=== PATIENT | male | born 1975 | race African-American/Black ===

== ENCOUNTER 2021-09-05 08:04 | Inpatient (IN) ==
[2021-09-05] MEDS ORDERED: LACTATED RINGERS 1,000 ML IV SCH (09:30)
[2021-09-05] MEDS ORDERED: LIDOCAINE 2% 5 ML VIAL ONE (10:30)
[2021-09-05] MEDS ORDERED: SUCCINYLCHOLINE 200 MG/10 ML VIAL ONE (10:30)
[2021-09-05] MEDS ORDERED: SEVOFLURANE 1 UNIT/15 MINUTE INH ONE ×13 (10:30→15:59)
[2021-09-05] MEDS ORDERED: fentaNYL 100 MCG/2 ML VIAL ONE (10:30)
[2021-09-05] MEDS ORDERED: MIDAZOLAM 2 MG/2 ML VIAL ONE (10:30)
[2021-09-05] MEDS ORDERED: propofoL 200 MG/20 ML VIAL IV ONE (10:30)
[2021-09-05] MEDS ORDERED: ROCURONIUM 50 MG/5 ML VIAL IV ONE ×2 (10:30→16:01)
[2021-09-05] MEDS ORDERED: FAMOTIDINE 20 MG TABLET ONE (10:44)
[2021-09-05] MEDS ORDERED: FAMOTIDINE 20 MG TABLET PO ONE (10:47)
[2021-09-05 11:26] LABS: Basophils % 0.2 % (0.0-0.8); Eosinophils # 0.1 10*3/uL (0.0-0.87); Eosinophils % 1.1 % (0.00-10.9); Hematocrit 41.5 VOL% (42.0-52.0); Hemoglobin 13.6 GM/DL (14.0-18.0); Immature Granulocytes % 0.5 %; Immature Granulocytes Absolute 0.06 #; Lymphocytes # 3.2 10*3/uL (1.4-4.0); Mean Corpuscular HGB Conc 32.8 GM/DL (32-36); Mean Corpuscular Volume 87.2 FL (87-102); Monocytes % 9.3 % (1.7-12.7); Neutrophils % 62.9 % (38.7-73.9); Platelet Count 331 T/CUMM (130-400); Red Blood Count 4.76 MC/CUMM (3.8-5.5); Red Cell Distribution Width 12.2 % (9.3-17.3); White Blood Count 12.3 T/CUMM (4-12)
[2021-09-05] MEDS ORDERED: ROPIVACAINE 0.5% 30 ML VIAL ONE (11:27)
[2021-09-05 11:56] LABS: Calcium 9.5 MG/DL (8.5-10.1); Osmolality,Calculated 276.2 MOS/KG (273-304); Potassium 4.3 MMOL/L (3.5-5.1)
[2021-09-05] MEDS ORDERED: PHENYLEPHRINE 1 MG/10 ML SYRINGE IV ONE (12:43)
[2021-09-05] MEDS ORDERED: cefTRIAXone 1,000 MG VIAL ONE (13:18)
[2021-09-05] MEDS ORDERED: GENTAMICIN 80 MG/2 ML VIAL ONE (13:18)
[2021-09-05] MEDS ORDERED: SODIUM CHLORIDE 0.9% 2,000 ML IV ONE (16:00)
[2021-09-05] MEDS ORDERED: SODIUM CHLORIDE 0.9% 250 ML IV ONE (16:00)
[2021-09-05] MEDS ORDERED: GLYCOPYRROLATE 0.4 MG/2 ML VIAL ONE (16:02)
[2021-09-05] MEDS ORDERED: NEOSTIGMINE 10 MG/10 ML VIAL ONE (16:02)
[2021-09-05] MEDS ORDERED: ONDANSETRON 4 MG/2 ML VIAL IV PRN ×2 (16:23→17:02)
[2021-09-05] MEDS ORDERED: diphenhydrAMINE 50 MG/1 ML VIAL IV PRN (16:23)
[2021-09-05] MEDS ORDERED: SIMETHICONE CHEW 125 MG TABLET PO PRN (16:23)
[2021-09-05] MEDS ORDERED: CALCIUM CARBONATE CHEW 500 MG TABLET PO PRN (16:23)
[2021-09-05] MEDS ORDERED: PROMETHAZINE 25 MG/1 ML VIAL IM PRN (16:23)
[2021-09-05] MEDS ORDERED: GLUCAGON 1 MG VIAL IM PRN (16:29)
[2021-09-05] MEDS ORDERED: DEXTROSE 10% 25 GM/250 ML BAG IV PRN (16:29)
[2021-09-05] MEDS ORDERED: HYDROmorphone 1 MG/1 ML SYRINGE ONE (17:04)
[2021-09-05] MEDS: HYDROmorphone 1 MG/1 ML SYRINGE IV PRN ×2 (17:04→17:15)
[2021-09-05 17:18] LABS: Basophils % 0.3 % (0.0-0.8); Eosinophils # 0.1 10*3/uL (0.0-0.87); Eosinophils % 0.5 % (0.00-10.9); Hematocrit 39.3 VOL% (42.0-52.0); Hemoglobin 12.7 GM/DL (14.0-18.0); Immature Granulocytes % 0.9 %; Lymphocytes # 2.6 10*3/uL (1.4-4.0); Lymphocytes % 22.7 % (21.2-54.2); Mean Corpuscular HGB Conc 32.3 GM/DL (32-36); Mean Corpuscular Volume 89.1 FL (87-102); Mean Platelet Volume 10.1 FL (9.6-12.0); Monocytes % 13.9 % (1.7-12.7); Neutrophils % 61.7 % (38.7-73.9); Platelet Count 337 T/CUMM (130-400); Red Blood Count 4.41 MC/CUMM (3.8-5.5); Red Cell Distribution Width 12.4 % (9.3-17.3); White Blood Count 11.6 T/CUMM (4-12)
[2021-09-05 17:18] LABS: Glucose,Urine (UA) 500 mg/dL (Negative); Ketones,Urine Negative (Negative); Nitrite,Urine Negative (Negative); Protein,Urine 100 MG/DL; Urine Appearance Slightly Cloudy (Clear); Urine Color Yellow (Yellow)
[2021-09-05 17:19] LABS: Bilirubin,Urine Negative (Negative); Blood, Urine Large mg/dL (Negative); Urine Urobilinogen 0.2 EU/DL (<2.0)
[2021-09-05 17:28] LABS: Hyaline Casts,Urine 4 /LPF (0-3); Mucus,Urine Occasional /LPF (Occasional); RBC,Urine 1114 /HPF (0-4); Squamous Epithelial Cell,Urine Occasional /HPF (0-10)
[2021-09-05 17:36] LABS: Calcium 8.6 MG/DL (8.5-10.1); Osmolality,Calculated 278.1 MOS/KG (273-304); Potassium 3.6 MMOL/L (3.5-5.1)
[2021-09-05] MEDS ORDERED: HYDROmorphone 1 MG/1 ML SYRINGE IV PRN (18:09)
[2021-09-05] MEDS: ACETAMINOPHEN 325 MG TABLET PO SCH (18:30)
[2021-09-05] MEDS: INSULIN LISPRO 100 UNIT/ML SUBCUT SCH ×2 (18:30→22:22)
[2021-09-05] MEDS: SODIUM CHLORIDE 0.9% 1,000 ML IV SCH (18:38)
[2021-09-05] MEDS: oxyCODONE/ACETAMINOPHEN 5-325 MG TABLET PO PRN (19:15)
[2021-09-05] MEDS: PANTOPRAZOLE 40 MG TABLET PO SCH (20:42)
[2021-09-05] MEDS: TAMSULOSIN 0.4 MG CAPSULE PO SCH (20:42)
[2021-09-05] MEDS: DOCUSATE SODIUM 100 MG CAPSULE PO SCH (20:42)
[2021-09-05] MEDS: ATORVASTATIN 40 MG TABLET PO SCH (20:43)
[2021-09-05] MEDS ORDERED: INSULIN GLARGINE 100 UNIT/ML SUBCUT SCH (21:00)
[2021-09-06] MEDS: ACETAMINOPHEN 325 MG TABLET PO SCH ×5 (00:08→23:58)
[2021-09-06] MEDS: SODIUM CHLORIDE 0.9% 1,000 ML IV SCH ×5 (04:16→23:59)
[2021-09-06 06:08] LABS: Basophils % 0.2 % (0.0-0.8); Eosinophils # 0.1 10*3/uL (0.0-0.87); Eosinophils % 0.9 % (0.00-10.9); Hemoglobin 11.9 GM/DL (14.0-18.0); Immature Granulocytes % 0.6 %; Immature Granulocytes Absolute 0.07 #; Lymphocytes # 2.9 10*3/uL (1.4-4.0); Lymphocytes % 23.4 % (21.2-54.2); Mean Corpuscular HGB Conc 32.2 GM/DL (32-36); Mean Corpuscular Volume 89.8 FL (87-102); Mean Platelet Volume 11.1 FL (9.6-12.0); Monocytes % 10.9 % (1.7-12.7); Platelet Count 313 T/CUMM (130-400); Red Blood Count 4.12 MC/CUMM (3.8-5.5); Red Cell Distribution Width 12.4 % (9.3-17.3); White Blood Count 12.2 T/CUMM (4-12)
[2021-09-06 06:23] LABS: Calcium 8.4 MG/DL (8.5-10.1); Osmolality,Calculated 279.7 MOS/KG (273-304); Potassium 3.9 MMOL/L (3.5-5.1)
[2021-09-06] MEDS ORDERED: cefTRIAXone 1,000 MG in SODIUM CHLORIDE 0.9% 100 ML IV ONE (06:55)
[2021-09-06] MEDS: INSULIN LISPRO 100 UNIT/ML SUBCUT SCH ×4 (09:52→21:41)
[2021-09-06] MEDS: PANTOPRAZOLE 40 MG TABLET PO SCH ×2 (09:56→20:26)
[2021-09-06] MEDS: DOCUSATE SODIUM 100 MG CAPSULE PO SCH ×2 (09:56→20:26)
[2021-09-06] MEDS: amLODIPine 10 MG TABLET PO SCH (12:47)
[2021-09-06] MEDS: SPIRONOLACTONE 25 MG TABLET PO SCH (12:47)
[2021-09-06] MEDS ORDERED: PHENYLEPHRINE 1 MG/10 ML SYRINGE IV ONE (13:10)
[2021-09-06] MEDS ORDERED: LIDOCAINE 2% 5 ML VIAL ONE (13:10)
[2021-09-06] MEDS ORDERED: SEVOFLURANE 1 UNIT/15 MINUTE INH ONE (13:10)
[2021-09-06] MEDS ORDERED: ROCURONIUM 50 MG/5 ML VIAL IV ONE (13:10)
[2021-09-06] MEDS ORDERED: propofoL 200 MG/20 ML VIAL IV ONE (13:10)
[2021-09-06] MEDS ORDERED: MINERAL OIL/PETROLATUM OPH OINT 3.5 GM TUBE ONE (13:10)
[2021-09-06] MEDS ORDERED: MIDAZOLAM 2 MG/2 ML VIAL ONE (13:11)
[2021-09-06] MEDS ORDERED: fentaNYL 250 MCG/5 ML VIAL ONE (13:11)
[2021-09-06] MEDS ORDERED: SUCCINYLCHOLINE 200 MG/10 ML VIAL ONE (14:47)
[2021-09-06] MEDS: cefTRIAXone 1,000 MG in SODIUM CHLORIDE 0.9% 100 ML IV SCH (15:08)
[2021-09-06 15:55] LABS: Hemoglobin 12.2 GM/DL (14.0-18.0)
[2021-09-06] MEDS ORDERED: SUGAMMADEX 200 MG/2 ML VIAL IV ONE (16:20)
[2021-09-06] MEDS ORDERED: METOPROLOL TARTRATE 5 MG/5 ML VIAL IV ONE (16:20)
[2021-09-06] MEDS ORDERED: fentaNYL 100 MCG/2 ML VIAL ONE (16:37)
[2021-09-06] MEDS ORDERED: DEXTROSE 10% 250 ML BAG IV PRN (16:41)
[2021-09-06] MEDS ORDERED: ONDANSETRON 4 MG/2 ML VIAL IV PRN (17:18)
[2021-09-06] MEDS ORDERED: HYDROmorphone 2 MG/1 ML VIAL IV PRN (17:18)
[2021-09-06] MEDS: HYDROmorphone 1 MG/1 ML SYRINGE IV PRN ×2 (17:22→17:29)
[2021-09-06] MEDS ORDERED: HYDROmorphone 1 MG/1 ML SYRINGE IV PRN (17:30)
[2021-09-06] MEDS ORDERED: MEPERIDINE 25 MG/1 ML VIAL IV PRN (17:43)
[2021-09-06 17:46] LABS: Basophils % 0.1 % (0.0-0.8); Eosinophils # 0.1 10*3/uL (0.0-0.87); Eosinophils % 0.6 % (0.00-10.9); Hematocrit 38.1 VOL% (42.0-52.0); Immature Granulocytes % 0.8 %; Immature Granulocytes Absolute 0.09 #; Lymphocytes # 1.9 10*3/uL (1.4-4.0); Lymphocytes % 17.5 % (21.2-54.2); Mean Corpuscular HGB Conc 31.5 GM/DL (32-36); Mean Corpuscular Volume 91.1 FL (87-102); Mean Platelet Volume 10.1 FL (9.6-12.0); Monocytes % 11.4 % (1.7-12.7); Neutrophils % 69.6 % (38.7-73.9); Platelet Count 352 T/CUMM (130-400); Red Blood Count 4.18 MC/CUMM (3.8-5.5); Red Cell Distribution Width 12.5 % (9.3-17.3); White Blood Count 10.6 T/CUMM (4-12)
[2021-09-06] MEDS ORDERED: PROMETHAZINE INJ 12.5 MG in SODIUM CHLORIDE 0.9% 50 ML IV ONE (17:46)
[2021-09-06 18:05] LABS: Calcium 8.3 MG/DL (8.5-10.1); Osmolality,Calculated 286.4 MOS/KG (273-304); Potassium 4.4 MMOL/L (3.5-5.1)
[2021-09-06] MEDS: oxyCODONE/ACETAMINOPHEN 5-325 MG TABLET PO PRN (19:28)
[2021-09-06] MEDS: TAMSULOSIN 0.4 MG CAPSULE PO SCH (20:26)
[2021-09-06] MEDS: sitaGLIPtin 25 MG TABLET PO SCH (20:26)
[2021-09-06] MEDS: ATORVASTATIN 40 MG TABLET PO SCH (20:26)
[2021-09-07 04:38] LABS: Basophils % 0.2 % (0.0-0.8); Eosinophils % 0.2 % (0.00-10.9); Hematocrit 35.3 VOL% (42.0-52.0); Hemoglobin 11.6 GM/DL (14.0-18.0); Immature Granulocytes % 0.8 %; Immature Granulocytes Absolute 0.11 #; Lymphocytes # 1.7 10*3/uL (1.4-4.0); Lymphocytes % 12.5 % (21.2-54.2); Mean Corpuscular HGB Conc 32.9 GM/DL (32-36); Monocytes % 9.6 % (1.7-12.7); Neutrophils % 76.7 % (38.7-73.9); Platelet Count 353 T/CUMM (130-400); Red Blood Count 4.01 MC/CUMM (3.8-5.5); Red Cell Distribution Width 12.2 % (9.3-17.3); White Blood Count 13.3 T/CUMM (4-12)
[2021-09-07 05:00] LABS: Calcium 8.9 MG/DL (8.5-10.1)
[2021-09-07] MEDS: ACETAMINOPHEN 325 MG TABLET PO SCH ×3 (06:06→17:09)
[2021-09-07] MEDS: PANTOPRAZOLE 40 MG TABLET PO SCH ×2 (10:55→20:58)
[2021-09-07] MEDS: INSULIN LISPRO 100 UNIT/ML SUBCUT SCH ×4 (10:55→20:57)
[2021-09-07] MEDS: DOCUSATE SODIUM 100 MG CAPSULE PO SCH ×2 (10:55→20:59)
[2021-09-07] MEDS: DAPAGLIFLOZIN 5 MG TABLET PO SCH (10:55)
[2021-09-07] MEDS: ENALAPRIL 20 MG TABLET PO SCH (10:56)
[2021-09-07] MEDS: SPIRONOLACTONE 25 MG TABLET PO SCH (10:56)
[2021-09-07] MEDS: amLODIPine 10 MG TABLET PO SCH (10:56)
[2021-09-07] MEDS: cefTRIAXone 1,000 MG in SODIUM CHLORIDE 0.9% 100 ML IV SCH (13:14)
[2021-09-07] MEDS ORDERED: GLUCAGON 1 MG VIAL IM PRN (13:17)
[2021-09-07] MEDS ORDERED: DEXTROSE 50% 25 GM/50 ML VIAL IV PRN (13:17)
[2021-09-07] MEDS: metFORMIN 500 MG TABLET PO SCH (17:52)
[2021-09-07] MEDS: sitaGLIPtin 25 MG TABLET PO SCH (20:58)
[2021-09-07] MEDS: TAMSULOSIN 0.4 MG CAPSULE PO SCH (20:58)
[2021-09-07] MEDS: ATORVASTATIN 40 MG TABLET PO SCH (20:59)
[2021-09-08] MEDS: ACETAMINOPHEN 325 MG TABLET PO SCH ×2 (00:37→05:17)
[2021-09-08 06:37] LABS: Basophils % 0.2 % (0.0-0.8); Eosinophils # 0.2 10*3/uL (0.0-0.87); Eosinophils % 1.1 % (0.00-10.9); Hematocrit 35.4 VOL% (42.0-52.0); Hemoglobin 11.4 GM/DL (14.0-18.0); Immature Granulocytes % 0.6 %; Lymphocytes # 3.3 10*3/uL (1.4-4.0); Lymphocytes % 20.7 % (21.2-54.2); Mean Corpuscular HGB Conc 32.2 GM/DL (32-36); Mean Corpuscular Volume 88.9 FL (87-102); Mean Platelet Volume 10.5 FL (9.6-12.0); Monocytes % 9.8 % (1.7-12.7); Neutrophils % 67.6 % (38.7-73.9); Platelet Count 372 T/CUMM (130-400); Red Blood Count 3.98 MC/CUMM (3.8-5.5); Red Cell Distribution Width 12.2 % (9.3-17.3); White Blood Count 16.1 T/CUMM (4-12)
[2021-09-08 06:52] LABS: Calcium 8.9 MG/DL (8.5-10.1); Osmolality,Calculated 277.8 MOS/KG (273-304); Potassium 3.7 MMOL/L (3.5-5.1)
[2021-09-08 07:33] VITALS: BP 165/92
[2021-09-08] MEDS: DOCUSATE SODIUM 100 MG CAPSULE PO SCH (08:48)
[2021-09-08] MEDS: ENALAPRIL 20 MG TABLET PO SCH (08:48)
[2021-09-08] MEDS: INSULIN LISPRO 100 UNIT/ML SUBCUT SCH (08:48)
[2021-09-08] MEDS: amLODIPine 10 MG TABLET PO SCH (08:48)
[2021-09-08] MEDS: DAPAGLIFLOZIN 5 MG TABLET PO SCH (08:48)
[2021-09-08] MEDS: SPIRONOLACTONE 25 MG TABLET PO SCH (08:48)
[2021-09-08] MEDS: metFORMIN 500 MG TABLET PO SCH (08:48)
[2021-09-08] MEDS: PANTOPRAZOLE 40 MG TABLET PO SCH (08:48)
== END 2021-09-08 08:50 | disposition home or self-care (01) | DRG 660 ==
LOC: N.OR 08:04 → N.SDSINP 08:04 → N.3E 16:23
PROVIDERS: ADMIT Surgery; ATTEND Surgery